=== PATIENT | male | born 1955 ===

== ENCOUNTER → 2024-03-10 08:05 | Outpatient (REF) | payer MEDICARE, SELFPAY ==
[2024-03-10 09:49] LABS: % Basophils 0.2 % (0-2); % Eosinophils 0.2 % (0-6); % Immature Granulocytes 0.6 % (0-0.5); % Lymphocytes 10.3 % (20.5-51.1); % Monocytes 8.7 % (1.7-9.3); Absolute Immature Granulocytes 0.1 10^3/uL (0-0.05); Absolute Monocytes 0.8 10^3/uL (0.1-0.6); Absolute Neutrophils 7.6 10^3/uL (1.4-6.5); Hematocrit 45.2 % (39.0-52.0); Hemoglobin 15.2 g/dL (13.0-18.0); Mean Corp Hgb Conc. 33.6 g/dL (33.0-37.0); Mean Corpuscular Hgb 29.7 pg (27.0-31.0); Mean Corpuscular Volume 88.3 fL (80.0-94.0); Mean Platelet Volume 10.8 fL (7.4-10.4); Nucleated Red Blood Cells % 0 % (-); Platelet Count 248 10^3/uL (130-400); Red Blood Cell Count 5.12 10^6/uL (4.70-6.10); Red Cell Dist. Width 12.7 % (11.5-14.5); White Blood Cell Count 9.5 10^3/uL (4.8-10.8)
[2024-03-10 10:16] LABS: ALT (SGPT) 26 U/L (0-50); AST (SGOT) 30 U/L (17-59); Albumin 4.4 g/dl (3.5-5.0); Alkaline Phosphatase 55 U/L (38-126); Blood Urea Nitrogen 26 mg/dl (9-20); Calcium 9.8 mg/dl (8.4-10.2); Carbon Dioxide 30 mmol/L (22-30); Chloride 100 mmol/L (98-107); Glucose 109 mg/dl (70-99); HDL Cholesterol 57 mg/dl; LDL Cholesterol, Calculated 114 mg/dl; Potassium 5.1 mmol/L (3.5-5.1); Sodium 140 mmol/L (135-145); Total Bilirubin 0.7 mg/dl (0.2-1.3); Total Cholesterol 197 mg/dl (50-199); Total Protein 6.7 g/dl (6.3-8.2); Triglyceride 134 mg/dl (10-149); Very Low Density Lipoprotein 26 mg/dl (0-30); eGFR > 60.00
[2024-03-10 10:25] LABS: C-Reactive Protein < 5.00 mg/L (0.0-10.00)
[2024-03-10 10:52] LABS: Rheumatoid Agglutinin Less Than 10 IU (<10 IU); TSH Reflex To Free T4 0.46 uIU/ml (0.47-4.68)
[2024-03-10 11:19] LABS: Free T4 0.63 ng/dl (0.78-2.19)
[2024-03-11 21:10] LABS: CCP Antibody IgG/IgA 3 Units (0-19)
== END ==
LOC: REG 08:05
PROVIDERS: ATTENDING PHYSICIAN Student in an Organized Health Care Education/Training Program; FAMILY PHYSICIAN Family Medicine
DX: R73.03 Prediabetes (principal); I10 Essential (primary) hypertension; E78.2 Mixed hyperlipidemia; I48.0 Paroxysmal atrial fibrillation; M65.342 Trigger finger, left ring finger
CPT/HCPCS: 36415; 80053; 80061; 83036; 84439; 84443; 85025; 86140; 86200; 86430

== ENCOUNTER → 2024-03-14 12:29 | Outpatient (REF) | payer MEDICARE, SELFPAY ==
[2024-03-14 13:11] LABS: % Basophils 0.4 % (0-2); % Eosinophils 1.9 % (0-6); % Immature Granulocytes 1.6 % (0-0.5); % Monocytes 10.4 % (1.7-9.3); % Neutrophils 67.7 % (42.2-75.2); Absolute Eosinophils 0.2 10^3/uL (0-0.7); Absolute Immature Granulocytes 0.1 10^3/uL (0-0.05); Absolute Lymphocytes 1.6 10^3/uL (1.2-3.4); Absolute Monocytes 0.9 10^3/uL (0.1-0.6); Hematocrit 44.7 % (39.0-52.0); Hemoglobin 15.6 g/dL (13.0-18.0); Mean Corp Hgb Conc. 34.9 g/dL (33.0-37.0); Mean Corpuscular Hgb 30.2 pg (27.0-31.0); Mean Corpuscular Volume 86.6 fL (80.0-94.0); Mean Platelet Volume 10.4 fL (7.4-10.4); Nucleated Red Blood Cells % 0 % (-); Platelet Count 256 10^3/uL (130-400); Red Blood Cell Count 5.16 10^6/uL (4.70-6.10); Red Cell Dist. Width 12.6 % (11.5-14.5); White Blood Cell Count 8.9 10^3/uL (4.8-10.8)
[2024-03-14 13:33] LABS: ALT (SGPT) 26 U/L (0-50); AST (SGOT) 26 U/L (17-59); Albumin 4.2 g/dl (3.5-5.0); Alkaline Phosphatase 75 U/L (38-126); Blood Urea Nitrogen 27 mg/dl (9-20); Calcium 9.8 mg/dl (8.4-10.2); Carbon Dioxide 28 mmol/L (22-30); Chloride 101 mmol/L (98-107); Glucose 101 mg/dl (70-99); Potassium 4.6 mmol/L (3.5-5.1); Sodium 140 mmol/L (135-145); Total Bilirubin 0.9 mg/dl (0.2-1.3); Total Protein 6.3 g/dl (6.3-8.2); eGFR > 60.00
[2024-03-16 16:01] LABS: Quantiferon Mitogen minus NIL 9.96 IU/mL; Quantiferon NIL 0.04 IU/mL; Quantiferon Plus TB2 minus NIL 0.02 IU/mL (<=0.34); Quantiferon TB Gold Plus Negative (Negative)
== END ==
LOC: REG 12:29
PROVIDERS: ATTENDING PHYSICIAN Internal Medicine; FAMILY PHYSICIAN Family Medicine
DX: L40.0 Psoriasis vulgaris (principal)
CPT/HCPCS: 36415; 80053; 85025; 86480

== ENCOUNTER → 2024-03-19 07:08 | Outpatient (REF) | payer MEDICARE, SELFPAY | LOC: MRI 07:08 | PROVIDERS: ATTENDING PHYSICIAN Physician Assistant; FAMILY PHYSICIAN Family Medicine | DX: M54.16 Radiculopathy, lumbar region (principal) | CPT/HCPCS: 72148 ==

== ENCOUNTER 2024-09-26 19:48 | Emergency (ER) | payer MEDICARE, SELFPAY ==
[2024-09-26 19:56] VITALS: BP 155/76
[2024-09-26 20:17] LABS: % Basophils 0.6 % (0-2); % Eosinophils 1.4 % (0-6); % Immature Granulocytes 0.5 % (0-0.5); % Lymphocytes 19.1 % (20.5-51.1); % Monocytes 11.1 % (1.7-9.3); % Neutrophils 67.3 % (42.2-75.2); Absolute Basophils 0.1 10^3/uL (0-0.2); Absolute Eosinophils 0.1 10^3/uL (0-0.7); Absolute Lymphocytes 1.5 10^3/uL (1.2-3.4); Absolute Monocytes 0.9 10^3/uL (0.1-0.6); Absolute Neutrophils 5.3 10^3/uL (1.4-6.5); Hematocrit 44.7 % (39.0-52.0); Hemoglobin 15.3 g/dL (13.0-18.0); Mean Corp Hgb Conc. 34.2 g/dL (33.0-37.0); Mean Corpuscular Hgb 30.2 pg (27.0-31.0); Mean Corpuscular Volume 88.2 fL (80.0-94.0); Mean Platelet Volume 10.6 fL (7.4-10.4); Nucleated Red Blood Cells % 0 % (-); Platelet Count 226 10^3/uL (130-400); Red Blood Cell Count 5.07 10^6/uL (4.70-6.10); Red Cell Dist. Width 12.3 % (11.5-14.5); White Blood Cell Count 7.9 10^3/uL (4.8-10.8)
[2024-09-26 20:27] LABS: APTT 30.2 Sec (23.4-35.0); PT 13.5 Sec (11.4-14.6)
[2024-09-26 20:35] LABS: ALT (SGPT) 18 U/L (0-50); AST (SGOT) 24 U/L (17-59); Albumin 4.5 g/dl (3.5-5.0); Alkaline Phosphatase 62 U/L (38-126); Blood Urea Nitrogen 26 mg/dl (9-20); Calcium 9.4 mg/dl (8.4-10.2); Carbon Dioxide 27 mmol/L (22-30); Chloride 103 mmol/L (98-107); Glucose 92 mg/dl (70-99); Potassium 4.9 mmol/L (3.5-5.1); Sodium 137 mmol/L (135-145); Total Protein 6.5 g/dl (6.3-8.2); eGFR > 60.00
--- NOTE | 2024-09-27 00:39 | ED.GENMED ---
History of Present Illness
General
Chief Complaint: DVT/Possible Blood Clot
Source: patient
Exam Limitations: none
Time Seen by Provider: 09/27/24 00:26
History of Present Illness
History of Present Illness:
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 He felt a cold sensation in his thigh. There is no chest pain or shortness of breath. He is not anticoagulated. He was
concerned he had a clot in his leg and came here. Since waiting in the waiting room and receiving his test he states his pain is resolved. No headache. He has a remote history of 1 episode of A-fib while he was sick COVID pneumonia several years
ago. He was on Xarelto for short period of time but has not been anticoagulated since. He does not smoke. No known injury. He does deal with low back pain and bulging disks.
Phy Exam
Physical Exam
Physical Exam:
General: well appearing male nad
HEENT: NC/AT
Heart: RRR, no murmurs
Lungs; CTA bilaterally
Vascular; 2+ DP and PT pulses right foot the legs feel the same temperature
Neurologic: Good sensation right leg bilateral patellar's 2+ negative straight leg raise skin is warm no skin changes no rash
Course
Orders/Labs/Results
Orders:
Orders
09/26/24 20:02
Periph Venous Lwr Ext Rt US [US Periph Venous LOWER Ext RT] Urgent
Comment:
Reason For Exam: swelling of thigh
09/26/24 20:09
Complete Blood Count/With Diff Urgent
Comprehensive Metabolic Panel Urgent
PTT Urgent
Prothrombin Time Urgent
Abnormal Lab Results
09/26/24
20:09
MPV 10.6 H fL
(7.4-10.4)
Absolute Monos (auto) 0.9 H 10^3/uL
(0.1-0.6)
Lymphocytes % 19.1 L %
(20.5-51.1)
Monocytes % 11.1 H %
(1.7-9.3)
BUN 26 H mg/dl
(9-20)
09/26/24 20:09
09/26/24 20:09
Vital Signs
Initial and Last Documented VS:
Initial Vital Signs
Temp Pulse Resp BP Pulse Ox
97.9 F 57 20 155/76 97
09/26/24 19:56 09/26/24 19:56 09/26/24 19:56 09/26/24 19:56 09/26/24 19:56
Last Documented Vital Signs
Temp Pulse Resp BP Pulse Ox
97.9 F 57 20 155/76 97
09/26/24 19:56 09/26/24 19:56 09/26/24 19:56 09/26/24 19:56 09/26/24 23:54
MDM/Problems Addressed
Differential Diagnosis Includes:
Patient has sudden onset pain to the right leg he was concerned about clot in his leg. Through triage a venous ultrasound was ordered which was negative for DVT. On exam the leg is warm to the touch with palpable pulses to the feet. The pain is
resolved. At this time no sign of arterial occlusion. Consider potential radiculopathy versus muscle related pain. No indication for any further imaging at this time stable for discharge
*Critical Care Note
Total Time (30-74mins, 75-104mins- exclusive of procedures): Not Applicable
ED Attending Note
-
Portions of this chart may have been created with voice recognition software.� Occasional wrong word or��sound alike� substitutions may have occurred due to the inherent limitations of voice recognition software.
Discharge Plan
Departure
Patient Disposition: Home (Routine Discharge)
Date of Disposition: 09/27/24
Time of Disposition: 00:43
Patient with high blood pressure during this ER visit?: No
Discharge Problem:
Leg pain
Prescriptions:
No Action
atorvastatin 20 mg Tablet
20 mg PO QPM
trazodone 50 mg Tablet
50 mg PO HS
escitalopram oxalate [Lexapro] 20 mg Tablet
20 mg PO DAILY
diltiazem HCl 120 mg Tablet Extended Release 24 Hr
120 mg PO DAILY
mupirocin 2 % ointment
1 applic topical BID Qty: 1 0RF
Patient Comments:
applied this am 05/04/23
Xarelto 20 mg Tablet
20 mg PO DAILY
cefadroxil 500 mg capsule
500 mg PO BID Qty: 14 0RF
Patient Comments:
started Sunday05/02/23
Rx Instructions:
*Take w/ food
*Take w/ probiotic
*POST-OP USE
Saccharomyces boulardii [Florastor] 250 mg capsule
250 mg PO BID Qty: 1 0RF
Xarelto 10 mg tablet
10 mg PO HS Qty: 3 0RF
Patient Comments:
for post op dose is decreasing to 10 mg po daily
Rx Instructions:
take 3nights following surgery, then resume full dose as previous
famotidine 20 mg tablet
20 mg PO HS Qty: 30 0RF
Patient Comments:
for post op
Rx Instructions:
post-op
dexamethasone 4 mg tablet
4 mg PO BID Qty: 6 0RF
Patient Comments:
for post op
Rx Instructions:
take with food
post-op use only
oxycodone 5 mg tablet
5 - 10 mg PO Q6HPRN PRN (Reason: 1 tab moderate-2 tabs severe pain) Qty: 30 0RF
Patient Comments:
for post op
Rx Instructions:
Dx surgery
ongoing therapy
Post-op use
docusate sodium [Colace] 100 mg capsule
100 mg PO BID Qty: 30 0RF
sennosides [senna] 8.6 mg tablet
17.2 mg PO BID Qty: 30 0RF
lisinopril 20 mg tablet
20 mg PO HS Qty: 0 0RF
Rx Instructions:
HOLD if systolic blood pressure <130 while on Oxycodone.
acetaminophen [Acetaminophen Extra Strength] 500 mg tablet
1,000 mg PO Q6H Qty: 60 0RF
Patient Comments:
'
I do not take that'
Rx Instructions:
DO NOT exceed >4000 mg daily.
Referrals:
Bryan Guerrero DO [Family Provider] -
Activity Restrictions/Additional Instructions:
Please return here for worsening symptoms. Follow-up with your doctor otherwise
Interventions
Interventions:
*Risk Screen - Suicide Last Done: 09/26/24 19:56
*General Assessment Last Done: 09/26/24 19:56
*Neglect/Abuse Screening Last Done: 09/26/24 19:56
*ED- Fall Risk Assessment Last Done: 09/26/24 19:56
*ED COVID-19 Vaccine History Last Done: 09/26/24 19:56
ED- Cardiac Assessment Last Done: 09/26/24 23:54
ED- Pulmonary Assessment Last Done: 09/26/24 23:54
ED-Peripheral Vascular Assessment Last Done: 09/26/24 23:54
ED-Skin Assessment Last Done: 09/26/24 23:54
Discharge Date and Time
Print Language: SENEGALESE
== END 2024-09-27 00:52 | disposition home or self-care (01) ==
LOC: EMR 19:48
PROVIDERS: EMERGENCY PHYSICIAN Student in an Organized Health Care Education/Training Program; FAMILY PHYSICIAN Family Medicine
DX: M79.604 Pain in right leg (principal); I48.91 Unspecified atrial fibrillation; Z86.16 Personal history of COVID-19; Z86.79 Personal history of other diseases of the circulatory system
CPT/HCPCS: 99284; 80053; 85025; 85610; 85730; 93971